=== PATIENT | female | born 1945 | race Caucasian/White ===

== ENCOUNTER 2016-03-03 15:58 | Emergency (ER) | payer MEDICARE, BC ==
[~2016-03-03] VITALS: Ht 165.1 cm; Wt 80.0 kg
[2016-03-03 16:02] VITALS: BP 169/82; PULSE 100; RESP 24; TEMP 98; O2SAT 93
[2016-03-03 16:37] VITALS: BP 169/82; PULSE 100; RESP 24; TEMP 98; O2SAT 93
[2016-03-03] MEDS ORDERED: HYDR-2376 PO (16:41)
--- NOTE | 2016-03-03 16:52 | PD ---
HPI Chief Complaint: Pain: Acute or Chronic Time Seen by Provider: 16:52 Travel History International Travel<30 days: No Contact w/Intl Traveler<30days: No Traveled to known affect area: No History of Present Illness HPI 70-year-old female with PMH of chronic neck and back pain secondary to degenerative changes presents to the ED for evaluation of same. Patient complains of 8/10 neck pain radiating to bilateral arms to the elbow. Worsened by movement. Also complains of low back pain, radiating to bilateral buttocks and hips. Patient denies numbness, tingling, weakness, limitations to range of motion of the extremity she denies saddle anesthesia, incontinence or foot drop. She denies any new injury or overuse. She states that the pain has not changed in character, only worsened. The patient states that she has been treated by pain management with steroid injections over the past few months. She states that over the last 3 or 4 days her pain has increased. She contacted her pain management provider who provided her with by mouth meds and a referral to neurosurgery. Patient treated with hydrocodone approximately 4 hours ago. PFSH Past Medical History Medical History: Denies Significant Hx Tetanus Vaccination: > 5 Years Influenza Vaccination: Yes ?: Not Menopausal: Yes Past Surgical History Abdominal Surgery: Yes (HERNIA) Appendectomy: Yes Gynecologic Surgery: Yes (VAGINAL REPAIR) Hysterectomy: Yes Social History Alcohol Use: No Tobacco Use: No Substance Use: No Allergies-Medications (Allergen,Severity, Reaction): Coded Allergies: Aspirin (Verified Allergy, Severe, Anaphylaxis, 03/03/16) Biaxin (Verified Allergy, Severe, Anaphylaxis, 03/03/16) Keflex (Verified Allergy, Severe, Anaphylaxis, 03/03/16) Penicillin (Verified Allergy, Severe, Anaphylaxis, 03/03/16) Tizanidine (Verified Allergy, Severe, Anaphylaxis, 03/03/16) Reported Meds & Prescriptions Reported Meds & Active Scripts Active Flexeril (Cyclobenzaprine HCl) 10 Mg Tab 10 Mg PO TID Medrol Dosepak (Methylprednisolone) 4 Mg Dspk 4 Mg PO DIRECTED Per Pharmacist direction Reported Hydrocodone-Acetaminophen 7.5-300 Mg Tab 1 Tab PO Q6H PRN Review of Systems Except as stated in HPI: all other systems reviewed are Neg Physical Exam Narrative GENERAL: Well-nourished, well-developed white female in no acute distress. SKIN: Warm and dry. HEAD: Normocephalic. EYES: No scleral icterus. No injection or drainage. NECK: Supple, trachea midline. No JVD or lymphadenopathy. Mild midline tenderness. Operable spasm of the trapezius bilaterally. CARDIOVASCULAR: Regular rate and rhythm without murmurs, gallops, or rubs. 2+ DP and radial pulses bilaterally. RESPIRATORY: Breath sounds clear and equal bilaterally. No accessory muscle use. GASTROINTESTINAL: Abdomen soft, non-tender, nondistended. Active bowel sounds. MUSCULOSKELETAL: No cyanosis, or edema. Good commercial attache strength in bilateral upper extremities. 5/5 biceps and triceps strength bilaterally. Tender to palpation over the anterolateral aspect of bilateral hips and groin. 5/5 dorsiflexion, plantarflexion, knee and hip flexion bilaterally. Sensation intact to light touch distally. NEUROLOGICAL: Awake and alert. Cranial nerves II through XII intact. Motor and sensory grossly within normal limits. 5/5 muscle strength in all muscle groups. Normal speech. BACK: Nontender without obvious deformity. No CVA tenderness. Data Data Last Documented VS Vital Signs Date Time Temp Pulse Resp B/P Pulse Ox O2 Delivery O2 Flow Rate FiO2 03/03/16 19:29 71 18 142/65 97 03/03/16 16:37 98.0 Room Air Orders Iv Access Insert/Monitor (03/03/16 17:29) Sodium Chlorid 0.9% 500 Ml Inj (Ns 500 M (03/03/16 17:30) Dexamethasone Inj (Decadron Inj) (03/03/16 17:30) Cyclobenzaprine (Flexeril) (03/03/16 17:30) Oxycodone-Acetamin 10-325 Mg (Percocet 1 (03/03/16 19:15) MDM Medical Decision Making Medical Screen Exam Complete: Yes Emergency Medical Condition: Yes Medical Record Reviewed: Yes (degenerative changes without neural impingement in the lumbar spine. Cervical disc disease with degenerative changes.) Differential Diagnosis Acute on chronic back pain versus acute on chronic neck pain versus radiculopathy versus spinal stenosis versus chronic pain versus other Narrative Course 70-year-old female with PMH of chronic neck and back pain secondary to degenerative changes presents to the ED for evaluation of same. Patient complains of 8/10 neck pain radiating to bilateral arms to the elbow and low back pain, radiating to bilateral buttocks and hips. Worsened by movement. Patient denies numbness, tingling, weakness, limitations to range of motion of the extremity, saddle anesthesia, incontinence or foot drop, new injury or overuse. She states that the pain has not changed in character, only worsened. Patient has been receiving steroid injections from pain management, last injection 4 weeks ago. Pain is increased over the last 3 or 4 days. She has a orthopedic surgery referral from her doctor. Vitals reviewed. Physical exam reveals no focal neural deficit. No limitations to range of motion, loss of strength. There is palpable spasm in bilateral trapezius muscles and tenderness to palpation of the paraspinal lumbar musculature and hips bilaterally. Patient was administered Decadron, Flexeril, Percocet. Review of the outpatient lumbar and cervical MRIs reveals the following: Lumbar: 12/16/15 Multilevel degenerative changes without neural impingement or central canal stenosis. Cervical: 12/09/15 1. Broad-based protrusion C4-5 close contact with cord with no definite mass effect. 2 mild to moderate posterior central protrusion at C3- C4 without mass effect. 3.Annular disc bulge C6/7 no mass effect. 4. Mild narrowing of neural foramina bilaterally at C4-5 and C6-7. 5. Degenerative disks C4-5, C6-7. I discussed the patient and plan of care with Dr. Sewell. Repeat check of the patient reveals mild improvement of her symptoms. Given the lack of red flag symptoms or focal neural deficit I do not feel emergent intervention is needed at this time. I discussed the patient's chronic pain, the necessity of taking pain medications as prescribed, close follow-up by her primary care provider or orthopedics/neurosurgeon. I provided her the name of the on-call surgeon. I prescribed her step down steroids, Flexeril. She is instructed to take all medication as prescribed, return to normal, gentle activity as tolerated, follow-up with surgery as discussed. She indicated understanding of instructions and is amenable to the plan of care. She is stable and discharged home. Diagnosis Primary Impression: Acute exacerbation of chronic low back pain Additional Impression: Cervical disc disorder Referrals: Ralph Ansari MD Neurosurgeon Patient Instructions: Cervical Radiculopathy (ED), Chronic Back Pain (ED), General Instructions, Muscle Spasm (ED) Additional Instructions: Rest, hydrate. Return to normal, gentle activities as tolerated. Take medications as prescribed. Follow-up with the neurosurgeon as planned. Return to the ED for any urgent or emergent medical condition. Med/Other Pt SpecificInfo: Prescription(s) given Scripts Cyclobenzaprine (Flexeril)10 Mg Tab10 Mg PO TID #15 TAB Ref 0 Prov:John Sewell MD 03/03/16 Methylprednisolone Dosepak (Medrol Dosepak)4 Mg Dspk4 Mg PO DIRECTED #1 DSPK Ref 0 Per Pharmacist direction Prov:John Sewell MD 03/03/16 Disposition: 01 DISCHARGE HOME Condition: Stable Kasey Feliz Mar 03, 2016 16:52
[2016-03-03] MEDS ORDERED: SODIUM CHLORID 0.9% 500 ML INJ 500 ML IV ONE (17:30)
[2016-03-03] MEDS ORDERED: CYCLOBENZAPRINE HCL 10 MG TAB PO ONE (17:30)
[2016-03-03] MEDS ORDERED: DEXAMETHASONE SOD PHOS 4 MG/ML VIAL IV PUSH ONE (17:30)
[2016-03-03] MEDS ORDERED: CYCL1TAB29 PO (18:24)
[2016-03-03] MEDS ORDERED: MEDR4PAK PO (18:24)
[2016-03-03] MEDS ORDERED: oxyCODONE/ACETAMINOPHEN 10 MG/325 MG TAB PO ONE (19:15)
[2016-03-03 19:29] VITALS: BP 142/65
== END 2016-03-03 19:29 | disposition home or self-care (01) ==
LOC: NETRI 15:58
DX: M50.81 Other cervical disc disorders, high cervical region (principal); M50.221 Other cervical disc displacement at C4-C5 level; M50.21 Other cervical disc displacement, high cervical region; M50.223 Other cervical disc displacement at C6-C7 level
CPT/HCPCS: 96361; 96374; 99283; J1100; J7040